=== PATIENT | male | born 1965 | race Caucasian/White ===

== ENCOUNTER 2023-08-21 00:09 | Emergency (ER) | payer BC ==
[~2023-08-21] VITALS: Ht 172.7 cm; Wt 93.6 kg
[2023-08-21 00:14] VITALS: TEMP 98
[2023-08-21] MEDS ORDERED: normal saline 1000ML IV soln IVB ONE (00:40)
[2023-08-21] MEDS ORDERED: LORazepam 2 mg/ml vial IV ONE (00:40)
[2023-08-21] MEDS ORDERED: pantoprazole 40 MG vial IV ONE (00:40)
[2023-08-21] MEDS ORDERED: ketorolac trometh. 30mg/ml inj. IV ONE (00:40)
[2023-08-21] MEDS ORDERED: morphine 4 MG/ML inj SYRINge IV ONE (00:40)
[2023-08-21] MEDS ORDERED: metoclopramide 5 mg/ml inj IV ONE (00:40)
[2023-08-21] MEDS ORDERED: pantoprazole 40MG/NS 100ML BAG 100 ML IV ONE (00:45)
[2023-08-21] MEDS ORDERED: iohexol 300mg/ml 100ml inj. ONE (01:13)
[2023-08-21 01:17] LABS: MEAN CORPUSCULAR HEMOGLOBIN 32.2 PG (27.0-31.0); MEAN PLATELET VOLUME 7.3 FL (7.4-10.4)
[2023-08-21 01:22] LABS: BASOPHILS % (AUTO) 0.5 % (0-1); EOSINOPHILS # (AUTO) 0.1 X10'3 (0-0.9); EOSINOPHILS % (AUTO) 1.2 % (0-6); HEMATOCRIT 46.2 % (42.0-52.0); HEMOGLOBIN 16.2 g/dl (14.0-17.9); LYMPHOCYTES # (AUTO) 1.2 X10'3 (1.1-4.8); LYMPHOCYTES % (AUTO) 19.7 % (21-51); MEAN CORPUSCULAR VOLUME 92.1 FL (78-98); MONOCYTES # (AUTO) 0.5 X10'3 (0-0.9); MONOCYTES % (AUTO) 7.3 % (2-12); NEUTROPHILS # (AUTO) 4.4 X10'3 (1.8-7.7); NEUTROPHILS % (AUTO) 71.3 % (42-75); PLATELET COUNT 162 X10'3 (140-440); RED BLOOD COUNT 5.01 X10'6 (4.70-6.10); RED CELL DISTRIBUTION WIDTH 13.6 % (11.5-14.5); WHITE BLOOD COUNT 6.2 X10'3 (4.5-11.0)
[2023-08-21 01:33] LABS: ALANINE AMINOTRANSFERASE 106 U/L (12-78); ALBUMIN 4.3 G/DL (3.4-5.0); ALBUMIN/GLOBULIN RATIO 1.1 (1.1-1.5); ALKALINE PHOSPHATASE 76 IU/L (46-116); ANION GAP 11 (8-16); ASPARTATE AMINO TRANSFERASE 57 U/L (10-37); BILIRUBIN,TOTAL 1.2 MG/DL (0.1-1.0); BLOOD UREA NITROGEN 15 MG/DL (7-18); BUN/CREATININE RATIO 12.3 (10.0-20.0); CALCIUM 9.9 MG/DL (8.5-10.1); CHLORIDE 102 MMOL/L (99-107); CREATININE 1.22 MG/DL (0.60-1.10); ETHANOL 76 MG/DL (<10); GLUCOSE 123 MG/DL (70-104); MAGNESIUM 2.3 MG/DL (1.5-2.4); POTASSIUM 3.1 MMOL/L (3.5-5.1); SODIUM 138 MMOL/L (135-145); TOTAL CARBON DIOXIDE 25.5 MMOL/L (24-32); TOTAL PROTEIN 8.3 G/DL (6.4-8.2); eCRCL 65 ML/MIN; eGFR 61 ML/MIN
[2023-08-21 02:28] LABS: URINE AMPHETAMINE SCREEN NEGATIVE (Neg); URINE BARBITUATE SCREEN NEGATIVE (Neg); URINE BENZODIAZEPINES SCREEN NEGATIVE (Neg); URINE CANNABINOID SCREEN NEGATIVE (Neg); URINE COCAINE SCREEN NEGATIVE (Neg); URINE METHADONE SCREEN NEGATIVE (Neg); URINE OPIATE SCREEN POSITIVE (Neg); URINE PHENCYCLIDINE SCREEN NEGATIVE (Neg)
[2023-08-21 03:19] LABS: BILIRUBIN,URINE NEGATIVE (Neg); CLARITY,URINE CLOUDY (Clear); COLOR,URINE YELLOW (Yellow); GLUCOSE, URINE NEGATIVE (Neg); KETONES,URINE TRACE mg/dl (Neg); LEUKOCYTE ESTERASE ,URINE NEGATIVE (Neg); NITRITES, URINE NEGATIVE (Neg); OCCULT BLOOD,URINE NEGATIVE (Neg); PH,URINE 7.5 (4.8-8.0); PROTEIN,URINE NEGATIVE (Neg); UA COLLECTION TYPE CLN CATCH MIDSTREAM; UROBILINOGEN,URINE 0.2 E.U/dL (0.2-1.0)
[2023-08-21] MEDS ORDERED: potassium Cl 20 mEq SR tablet PO STA (03:20)
[2023-08-21 03:32] LABS: AMORPHOUS PHOSPHATES 3+; BACTERIA,URINE NONE SEEN /HPF (Neg); MUCUS STRANDS NONE SEEN /LPF (Neg); RBC,URINE NONE SEEN /HPF (0-2); SQUAMOUS EPITHELIAL CELL,UR NONE SEEN /LPF (FEW); WBC,URINE NONE SEEN /HPF (0-4)
[2023-08-21 07:48] VITALS: BP 159/87; PULSE 88; RESP 16; O2SAT 98
== END 2023-08-21 07:58 | disposition home or self-care (01) ==
LOC: ER 00:10
DX: K29.20 Alcoholic gastritis without bleeding (principal); E87.6 Hypokalemia; E86.0 Dehydration
CPT/HCPCS: 71045; 74177; 76700; 80053; 80305; 80320; 81001; 83735; 84484; 85025; 93005; 96374; 96375; 99285; C9113; J1885; J2270; J2765; J3490; J7030; Q9967

== ENCOUNTER 2024-01-08 10:04 | Outpatient (CLI) | payer BC | END 2024-01-08 23:59 | disposition home or self-care (01) | LOC: RAD 10:04 | PROVIDERS: ATTEND Family Medicine | DX: M51.36 Other intervertebral disc degeneration, lumbar region (principal); M54.9 Dorsalgia, unspecified | CPT/HCPCS: 72110 ==

== ENCOUNTER → 2024-06-18 | Outpatient (CLI) | payer BC ==
[2024-06-18 09:26] LABS: BILIRUBIN,URINE NEGATIVE (Neg); CLARITY,URINE CLEAR (Clear); COLOR,URINE YELLOW (Yellow); GLUCOSE, URINE NEGATIVE (Neg); KETONES,URINE NEGATIVE (Neg); LEUKOCYTE ESTERASE ,URINE NEGATIVE (Neg); NITRITES, URINE NEGATIVE (Neg); OCCULT BLOOD,URINE NEGATIVE (Neg); PH,URINE 7.5 (4.8-8.0); PROTEIN,URINE NEGATIVE (Neg)
[2024-06-18 09:31] LABS: EOSINOPHILS # (AUTO) 0.2 X10'3 (0-0.9); EOSINOPHILS % (AUTO) 3.6 % (0-6); HEMATOCRIT 46.1 % (42.0-52.0); HEMOGLOBIN 15.8 g/dl (14.0-17.9); LYMPHOCYTES # (AUTO) 1.4 X10'3 (1.1-4.8); LYMPHOCYTES % (AUTO) 27.9 % (21-51); MEAN CORPUSCULAR HEMOGLOBIN 31.5 PG (27.0-31.0); MEAN CORPUSCULAR HGB CONC 34.4 g/dL (33.0-36.5); MEAN CORPUSCULAR VOLUME 91.8 FL (78-98); MEAN PLATELET VOLUME 7.6 FL (7.4-10.4); MONOCYTES # (AUTO) 0.5 X10'3 (0-0.9); MONOCYTES % (AUTO) 10.2 % (2-12); NEUTROPHILS # (AUTO) 2.8 X10'3 (1.8-7.7); NEUTROPHILS % (AUTO) 57.3 % (42-75); PLATELET COUNT 172 X10'3 (140-440); RED BLOOD COUNT 5.02 X10'6 (4.70-6.10); RED CELL DISTRIBUTION WIDTH 13.7 % (11.5-14.5); WHITE BLOOD COUNT 4.9 X10'3 (4.5-11.0)
[2024-06-18 09:34] LABS: UA COLLECTION TYPE CLN CATCH MIDSTREAM
[2024-06-18 09:49] LABS: ALANINE AMINOTRANSFERASE 34 U/L (12-78); ALBUMIN 4.1 G/DL (3.4-5.0); ALBUMIN/GLOBULIN RATIO 1.1 (1.1-1.5); ALKALINE PHOSPHATASE 76 IU/L (46-116); ANION GAP 7 (8-16); ASPARTATE AMINO TRANSFERASE 17 U/L (10-37); BILIRUBIN,TOTAL 1.2 MG/DL (0.1-1.0); BLOOD UREA NITROGEN 18 MG/DL (7-18); BUN/CREATININE RATIO 19.8 (10.0-20.0); CHLORIDE 105 MMOL/L (99-107); CHOL/HDL RATIO 2.6 (0.00-4.99); CHOLESTEROL 153 MG/DL (0-200); CREATININE 0.91 MG/DL (0.60-1.10); GLUCOSE 103 MG/DL (70-104); HDL CHOLESTEROL 58 MG/DL (35-60); LDL CHOLESTEROL 83 MG/DL (50-100); POTASSIUM 3.8 MMOL/L (3.5-5.1); SODIUM 139 MMOL/L (135-145); THYROID STIMULATING HORMONE 1.12 ulU/ml (0.34-4.50); TOTAL CARBON DIOXIDE 27.2 MMOL/L (24-32); TRIGLYCERIDES 60 MG/DL (20-135); eGFR 86 ML/MIN
[2024-06-19 11:04] LABS: PSA, ULTRASENSITIVE W/O SERIAL 0.483 ng/mL (0.000-4.000); TESTOSTERONE, SERUM 251 ng/dL (264-916); THYROXINE (T4) 5.9 ug/dL (4.5-12.0)
== END | disposition home or self-care (01) ==
LOC: RAD 08:50
PROVIDERS: ATTEND Family Medicine
DX: I10 Essential (primary) hypertension (principal); F10.20 Alcohol dependence, uncomplicated; R79.89 Other specified abnormal findings of blood chemistry
CPT/HCPCS: 36415; 80053; 80061; 81003; 83036; 84153; 84402; 84403; 84436; 84443; 85025

== ENCOUNTER 2025-01-17 11:23 | Outpatient (CLI) | payer BC ==
[2025-01-17 11:57] LABS: BASOPHILS # (AUTO) 0.1 X10'3 (0-0.2); BASOPHILS % (AUTO) 1.1 % (0-1); EOSINOPHILS # (AUTO) 0.1 X10'3 (0-0.9); EOSINOPHILS % (AUTO) 1.9 % (0-6); LYMPHOCYTES # (AUTO) 1.1 X10'3 (1.1-4.8); MEAN CORPUSCULAR HEMOGLOBIN 31.2 PG (27.0-31.0); MEAN CORPUSCULAR HGB CONC 34.5 g/dL (33.0-36.5); MEAN CORPUSCULAR VOLUME 90.6 FL (78-98); MEAN PLATELET VOLUME 7.4 FL (7.4-10.4); MONOCYTES # (AUTO) 0.4 X10'3 (0-0.9); MONOCYTES % (AUTO) 7.6 % (2-12); NEUTROPHILS % (AUTO) 69.4 % (42-75); PLATELET COUNT 213 X10'3 (140-440); RED BLOOD COUNT 5.85 X10'6 (4.70-6.10); RED CELL DISTRIBUTION WIDTH 14.3 % (11.5-14.5); WHITE BLOOD COUNT 5.7 X10'3 (4.5-11.0)
[2025-01-17 12:21] LABS: ALANINE AMINOTRANSFERASE 28 U/L (12-78); ALBUMIN 4.1 G/DL (3.4-5.0); ALBUMIN/GLOBULIN RATIO 1.1 (1.1-1.5); ALKALINE PHOSPHATASE 75 IU/L (46-116); ANION GAP 10 (8-16); ASPARTATE AMINO TRANSFERASE 22 U/L (10-37); BILIRUBIN,TOTAL 1.3 MG/DL (0.1-1.0); BLOOD UREA NITROGEN 16 MG/DL (7-18); CHLORIDE 106 MMOL/L (99-107); CHOL/HDL RATIO 2.7 (0.00-4.99); CHOLESTEROL 158 MG/DL (0-200); CREATININE 0.89 MG/DL (0.60-1.10); HDL CHOLESTEROL 58 MG/DL (35-60); LDL CHOLESTEROL 90 MG/DL (50-100); POTASSIUM 4.2 MMOL/L (3.5-5.1); SODIUM 141 MMOL/L (135-145); THYROID STIMULATING HORMONE 0.72 ulU/ml (0.34-4.50); TOTAL CARBON DIOXIDE 25.1 MMOL/L (24-32); TRIGLYCERIDES 54 MG/DL (20-135); eGFR 88 ML/MIN
[2025-01-17 12:27] LABS: GLUCOSE 86 MG/DL (70-104)
[2025-01-17 12:48] LABS: HEMOGLOBIN A1C 4.8 % (4.5-6.2)
[2025-01-18 13:57] LABS: HEMOGLOBIN 18.3 g/dl (14.0-17.9)
[2025-01-20 13:16] LABS: TESTOSTERONE, SERUM 510 ng/dL (264-916); THYROXINE (T4) 6.7 ug/dL (4.5-12.0)
== END 2025-01-17 23:59 | disposition home or self-care (01) ==
LOC: RAD 11:23
PROVIDERS: ATTEND Family Medicine
DX: I10 Essential (primary) hypertension (principal); E29.1 Testicular hypofunction
CPT/HCPCS: 36415; 80053; 80061; 83036; 84402; 84403; 84436; 84443; 85025

== ENCOUNTER 2025-03-24 09:54 | Outpatient (CLI) | payer BC ==
[2025-03-25 11:14] LABS: TESTOSTERONE, SERUM 92 ng/dL (264-916)
== END 2025-03-24 23:59 | disposition home or self-care (01) ==
LOC: RAD 09:54
PROVIDERS: ATTEND Family Medicine
DX: E29.1 Testicular hypofunction (principal)
CPT/HCPCS: 36415; 83036; 84402; 84403

== ENCOUNTER 2025-10-21 12:43 | Inpatient (IN) | payer BC ==
[~2025-10-21] VITALS: Ht 172.7 cm; Wt 107.5 kg
--- NOTE | 2025-10-21 12:54 | ELECTROCARDIOGRAPH REPORT ---
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 ROBERT Mosquera Measurements Intervals [place] Rate: 95 P: 56 NC: 47 QRS: 93 QRSD: 117 T: -56 QT: 390 QTc: 491 Interpretive Statements Sinus rhythm Paired ventricular premature complexes Aberrant conduction of SV complex(es) Short NC interval Nonspecific intraventricular conduction delay Anterior infarct, old Borderline repolarization abnormality Baseline wander in lead(s) V3 Electronically Signed On 10-22-2025 17:08:[address] ROBERT Mosquera Please click the below link to view image of tracing.
--- NOTE | 2025-10-21 13:07 | Physician Documentation ---
History of Present Illness General Chief Complaint: Cough Stated Complaint: SOB COLD SYMPTOMS Time Seen by MD: 13:06 Mode of Arrival: POV History of Present Illness Initial Comments The patient is a 59-year-old male who states he has a history of hypertension but no significant cardiac history states that he has been progressively short of breath over last several weeks. The patient states he has dyspnea on exertion walking across the room. The patient denies any chest pain. Patient states he is not a current smoker. The patient states he does have a strong family history of cardiac disease. Medication Reconciliation Allergies: Coded Allergies: No Known Allergies (Unverified , 08/21/23) Scheduled Carvedilol (Carvedilol), 3.125 MG PO BID Cholecalciferol (Vitamin D3) (Vitamin D3), 2 CAP PO DAILY, (Reported) Furosemide (Furosemide), 40 MG PO BID Sacubitril/Valsartan (Entresto 24 mg-26 mg Tablet), 1 TABLET PO BID Spironolactone (Aldactone), 25 MG PO BID Scheduled PRN Nitroglycerin SL* (Nitrostat SL*), 0.4 MG SL Q5MIN PRN for X3 CHEST PAIN-NOTIFY MD Discontinued Medications Amlodipine Besylate (Norvasc), 1 TAB PO DAILY, (Reported) Amlodipine Besylate/Benazepril 5/40 MG* (Amlodipine-Benazepril 5/40 MG*), 1 CAP PO DAILY, (Reported) Discontinued Reason: wrong med Past Medical History Past Medical History: Hypertension Review of Systems All Other Systems at this time: Reviewed and Negative Physical Exam Physical Exam Vital Signs: Temperature: 97.7, Source: Oral, Heart Rate: 60, Respiratory Rate: 16, BP: 145/96, Pulse Oximetry: 95, Weight: 110.300 Oxygen Flow Rate: 0 Physical Exam VITALS: Reviewed and as above. GENERAL: Alert, no apparent distress. HEENT: Normocephalic, atraumatic, PERRL, EOMI, dry mucosa, no erythema RESPIRATORY: Crackles bilateral bases, no respiratory distress. CHEST: No accessory muscle use, no retractions CV: Irregular rate, rhythm, no edema, no murmur, No: JVD GI: Soft, non-tender, bowels sounds present, no rebound, guarding, or rigidity BACK: No CVA tenderness, or swelling MUSCULOSKELETAL: No deformities, no edema SKIN: Warm and dry, no rash NEURO: Oriented x4, No motor or sensory deficit PSYCH: Normal mood and affect, no agitation Progress Results/Orders Results/Orders Orders - OHJOSHUA GUAJARDO MD Chest,Single View (10/21/25 12:49) Monitor (10/21/25 12:49) Saline Lock (10/21/25 12:49) Oxygen (10/21/25 12:49) Electrocardiogram (10/21/25 12:49) Page Hospitalist (10/21/25 14:25) Completed Orders - JOSHUA ROBB MD Chest,Single View (10/21/25 12:49) Cbc/Diff (10/21/25 12:49) BMP (10/21/25 12:49) PBNP (10/21/25 12:49) Electrocardiogram (10/21/25 12:49) Hs Troponin I W Calculations (10/21/25 12:49) Procalcitonin (10/21/25 13:12) Nitroglycerin 0.4mg/Hr Patch (Nitro-Dur (10/21/25 13:50) Vital Signs 10/21/25 10/21/25 10/21/25 12:45 13:01 15:29 Temp 97.7 Pulse 60 71 Resp 16 16 18 B/P (MAP) 145/96 120/87 (98) Pulse Ox 95 95 O2 Flow Rate 0 0 Laboratory Tests Test 10/21/25 13:00 White Blood Count 6.8 Red Blood Count 5.63 Hemoglobin 16.8 Hematocrit 49.1 Mean Corpuscular Volume 87.2 Mean Corpuscular Hemoglobin 29.8 Mean Corpuscular Hemoglobin Concent 34.2 Red Cell Distribution Width 13.3 Platelet Count 234 Mean Platelet Volume 8.0 Neutrophils (%) (Auto) 64.6 Lymphocytes (%) (Auto) 22.4 Monocytes (%) (Auto) 9.3 Eosinophils (%) (Auto) 2.9 Basophils (%) (Auto) 0.8 Neutrophils # (Auto) 4.4 Lymphocytes # (Auto) 1.5 Monocytes # (Auto) 0.6 Eosinophils # (Auto) 0.2 Basophils # (Auto) 0.1 CBC Comment Sodium Level 138 Potassium Level 3.9 Chloride Level 104 Carbon Dioxide Level 24.8 Anion Gap 9 Blood Urea Nitrogen 18 Creatinine 1.21 H Estimated GFR/1.73 m2 62 BUN/Creatinine Ratio 14.9 Glucose Level 105 H Calcium Level 9.3 Troponin I High Sensitivity 54 Pro-B-Type Natriuretic Peptide 304 H Albumin 4.1 Procalcitonin 0.05 Chemistry Comments Medical Decision Making Additional information obtaine: old records Findings The patient's EKG demonstrates a sinus rhythm with an indeterminate axis with multiple PVCs and paired PVCs and nonspecific ST abnormalities with a rate of 95 the EKG was interpreted as an abnormal EKG there was no evidence of ST- elevation. The patient presented with new onset shortness of breath and was found to have pulmonary edema and an abnormal EKG. The patient has no history of congestive heart failure. The patient will be admitted to the hospitalist. I independently interpreted the chest x-ray as showing cardiomegaly, pulmonary edema and normal appearing bony structures and a normal mediastinum. 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 Patient will be admitted to the hospitalist Differential Diagnosis chf, copd, pneumonia Departure Admitted to Inpatient Unit: yes, to hospitalist Impression: Primary Impression: Shortness of breath Additional Impression: Pulmonary edema Qualified Codes: J81.0 - Acute pulmonary edema Referrals: NO PRIMARY CARE PROVIDER (PCP) Prescriptions Carvedilol (Carvedilol) 3.125 Mg Tablet 3.125 MG PO BID for 30 Days, #60 TAB Prov: MAJO WILLIS MD 10/23/25 Nitroglycerin SL* (Nitrostat SL*) 0.4 Mg Tablet 0.4 MG SL Q5MIN PRN for X3 CHEST PAIN-NOTIFY MD for 30 Days, #30 TAB Prov: MAJO WILLIS MD 10/23/25 Furosemide (Furosemide) 40 Mg Tablet 40 MG PO BID for 30 Days, #60 TAB Prov: MAJO WILLIS MD 10/23/25 Spironolactone (Aldactone) 25 Mg Tablet 25 MG PO BID for 30 Days, #30 TAB Prov: MAJO WILLIS MD 10/23/25 Sacubitril/Valsartan (Entresto 24 mg-26 mg Tablet) 24 Mg-26 Mg Tablet 1 TABLET PO BID for 30 Days, #60 TAB Prov: AMJO WILLIS MD 10/23/25 Signature Scribe Signature: no scribe Attestation: The note accurately reflects work and decisions made by me.Joshua Robb MD 10/24/25 11:19 JOSHUA ROBB MD Oct 21, 2025 13:07
[2025-10-21 13:12] LABS: MEAN PLATELET VOLUME 8.0 FL (7.4-10.4); RED CELL DISTRIBUTION WIDTH 13.3 % (11.5-14.5)
--- NOTE | 2025-10-21 13:19 | RADIOLOGY REPORT ---
EXAM: DI CHEST,SINGLE VIEW HISTORY: CP COMPARISON: DI CHEST,SINGLE VIEW on DOS: 08/21/23 TECHNIQUE: Portable upright AP view of the chest was performed. FINDINGS: There is diffuse interstitial prominence, greatest centrally and in the lung bases. No pneumothorax or consolidative infiltrates. There is blunting of the right costophrenic angle. The heart is borderline enlarged. IMPRESSION: Interstitial prominence centrally and in the lung bases suggestive of CHF exacerbation. There is also likely a small right pleural effusion.
[2025-10-21 13:35] LABS: CREATININE 1.21 MG/DL (0.60-1.10); PRO BRAIN NATRIURETIC PEPTIDE 304 PG/ML (0-125); TOTAL CARBON DIOXIDE 24.8 MMOL/L (24-32); eCRCL 64 ML/MIN; eGFR 62 ML/MIN
[2025-10-21] MEDS ORDERED: potassium Cl 20 mEq SR tablet PO PRN ×2 (15:50)
[2025-10-21] MEDS ORDERED: magnesium Cl slow-release 64mg tablet PO PRN (15:50)
[2025-10-21] MEDS ORDERED: potassium Cl 40MEQ/1/2NS 520ml 520 ML IV PRN (15:50)
[2025-10-21] MEDS ORDERED: magnesium sulf-water 2g/50mL 50 ML IV PRN (15:50)
[2025-10-21] MEDS ORDERED: ondansetron/PF 4mg/2ml inj IV PRN (15:50)
[2025-10-21] MEDS ORDERED: magnesium sulf-water 4G/100mL 100 ML IV PRN (15:50)
--- NOTE | 2025-10-21 16:00 | HISTORY AND PHYSICAL ---
History & Physical Providers to CC ~ History of Present Illness Reason for Admit\Complaint: Shortness of breath History of Present Illness 59 year old male with history of HTN presented to the ER for evaluation of shortness of breath over the last several weeks. Patient reports being short of breath walking across a room. Denies having any orthopnea PND or ankle edema. Patient states he was having a lot of reflux symptoms and changed his diet, stopped drinking alcohol but still his symptoms did not improve. Denies having any recent fever chills cough or expectoration, denies having any abdominal pain dysuria frequency urgency hematuria melena or bright red blood per rectum. Patient denies having any focal neurological symptoms. He has been admitted for further evaluation of his dyspnea. Allergies: Coded Allergies: No Known Allergies (Unverified , 08/21/23) Past Medical History Past Medical History Hypertension Past Surgical History Surgical History Comment None Family History Family History: Family history was reviewed; no changes noted. Past Social History Social History Comment Does not smoke, does not drink or do any drugs Health Maintenance Health Maintenance Current on his immunizations ROS ROS All other systems are reviewed and are negative except as mentioned in HPI Exam Vitals: Vital Signs Date Time Temp Pulse Resp B/P (MAP) Pulse Ox O2 Delivery O2 Flow Rate FiO2 10/21/25 15:29 71 18 120/87 (98) 95 0 10/21/25 12:45 97.7 General: Awake cooperative in no acute distress HEENT: Normocephalic, atraumatic, extraocular movements are intact. Neck: Supple, no JVD, trachea midline, no lymphadenopathy. Chest: Clear to auscultation, no wheezes crackles or rhonchi. Cardiovascular: Regular rate rhythm, no murmur gallop or rub. Abdomen: Soft nontender, no organomegaly. Extremities: No cyanosis clubbing or edema. Central Nervous System: Nonfocal. Moves all four extremities Musculoskeletal: No joint swelling or deformities noted. Skin: No rash or ulcers noted. Diagnostic Data Last Recorded Lab Results: 10/21/25 1300 10/21/25 1300 Additional Plan 59 years old male with a history of hypertension, presented to the ER for evaluation of shortness of breaths #shortness of breaths: We will check serial troponin, echocardiogram, treat with Lasix and monitor #history of hypertension: Start on Coreg. #code status: Full code Date of Service: Oct 21, 2025 Billing Provider: MAJO WILLIS MD Common Visit Codes: [id number] INP/OBS CARE (MOD) MAJO WILLIS MD Oct 21, 2025 16:00
[2025-10-21] MEDS: PERFLUTREN PROTEIN-A MICROSPHR (Optison) 0.22 MG/ML 3ML VIAL IV ONE (16:02)
[2025-10-21] MEDS ORDERED: furosemide 10 MG/1 ML 10ml inj IV SCH (16:25)
[2025-10-21] MEDS: furosemide 10 MG/1 ML 10ml inj IV SCH (18:39)
[2025-10-21] MEDS: K and/or MAG REPLACEMENT MC SCH (19:56)
[2025-10-21] MEDS ORDERED: AMLO-140 PO (20:02)
[2025-10-21] MEDS ORDERED: CHOL100046 PO (20:02)
[2025-10-21 22:22] VITALS: BP 126/84; PULSE 78; RESP 18; TEMP 97.8; O2SAT 95
[2025-10-21 22:30] VITALS: RESP 18; O2SAT 95
[2025-10-21 23:15] LABS: INFLUENZA TYPE A ANTIGEN RAPID NEGATIVE (Negative); INFLUENZA TYPE B ANTIGEN RAPID NEGATIVE (Negative)
[2025-10-22] VITALS (13 sets, daily range): BP systolic 109–142; BP diastolic 71–192; PULSE 60–94; RESP 14–18; TEMP 97.3–98.3; O2SAT 88–98
[2025-10-22 05:21] LABS: MEAN PLATELET VOLUME 7.7 FL (7.4-10.4); RED CELL DISTRIBUTION WIDTH 13.5 % (11.5-14.5)
[2025-10-22 05:23] LABS: CREATININE 1.14 MG/DL (0.60-1.10); TOTAL CARBON DIOXIDE 26.8 MMOL/L (24-32); eCRCL 68 ML/MIN; eGFR 66 ML/MIN
[2025-10-22] MEDS ORDERED: AMLO5TAB5 PO (10:45)
--- NOTE | 2025-10-22 11:28 | PROGRESS NOTE ---
Daily Progress Note Providers to CC ~ Antibiotic Timeout Antibiotic Ordered?: No Subjective No new complaints, patient is getting an Echo Objective Vital Signs Date Time Temp Pulse Resp B/P (MAP) Pulse Ox O2 Delivery O2 Flow Rate FiO2 10/22/25 06:48 97.8 70 17 113/75 (88) 97 Room Air 10/21/25 20:04 0 Result Diagram: 10/22/2545310/22/25453 Awake alert oriented HEENT normocephalic , atraumatic EOMI Neck supple, no JVD Chest CTA Heart RRR Abdomen soft nontender no organomegaly Extremities No C/C/E Neuro exam nonfocal Other Results Medications reviewed Problem\Assessment\Plan 59 years old male with a history of hypertension, presented to the ER for evaluation of shortness of breaths #shortness of breath: Check serial troponin, await echocardiogram, Continue Lasix , request cardiology consult . #history of hypertension: Started on Coreg. #Code status: Full code Date of Service: Oct 22, 2025 Billing Provider: MAJO WILLIS MD Common Visit Codes: [id number] INP/OBS CARE(HIGH) MAJO WILLIS MD Oct 22, 2025 11:28
[2025-10-22] MEDS ORDERED: aminophylline 250mg/10ml inj. IV PRN (11:35)
[2025-10-22] MEDS ORDERED: regadenoson 0.4mg/5ml syringe IV PRN (11:35)
[2025-10-22] MEDS ORDERED: metoprolol tartrate 1mg/ml inj IV PRN (11:35)
[2025-10-22] MEDS: cholecalciferol (vitamin D3) 1,000 unit (25mcg) tablet PO SCH (14:10)
[2025-10-22] MEDS ORDERED: LIDOcaine 1% 30ml preserv. free vial ONE (14:52)
[2025-10-22] MEDS ORDERED: midazolam 1 mg/ML 2ml injection ONE (14:52)
[2025-10-22] MEDS ORDERED: fentaNYL/PF 50MCG/1 ML 2ML syringe ONE (14:53)
[2025-10-22] MEDS ORDERED: iohexol 350 MG/ML 50ML vial IV ONE (14:53)
[2025-10-22] MEDS: normal saline 1000ml 1,000 ML IV SCH ×2 (14:57→17:38)
--- NOTE | 2025-10-22 16:59 | CONSULTATION REPORT ---
Cardiac Consultation Report Providers to CC ~ Subjective Subjective CARDIOLOGY CONSULTATION: CONGESTIVE HEART FAILURE HOSPITALIZATION EJECTION FRACTION APPROXIMATELY 30% ON ECHOCARDIOGRAPHY WITH INFEROBASAL AKINESIS. BECAUSE PATIENT STARTED TO HAVE INCREASING SHORTNESS OF BREATH WHILE CAMPING AND HE HAS HAD SEVERAL MONTHS OF A CHRONIC HACKING NONPRODUCTIVE COUGH. 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 HE TAKES AMLODIPINE FOR HYPERTENSION GENERAL CARES [facility]. 0 HISTORY OF RECREATIONAL DRUG USE NONE FOR GREATER THAN 10 YEARS. HE QUIT DRINKING ALCOHOL TWO MONTHS AGO. HAD REPEATED EPISODES OF GASTROESOPHAGEAL REFLUX DISORDER AND HE HAS BEGAN TO THINK IT MAY BE ANGINA AND HE CAME TO THE EMERGENCY ROOM DUE TO HIS SHORTNESS OF BREATH. HE HAS RECEIVED ONE LASIX 40 MG HIS HOSPITALIZATION. ALLERGIES NONE KNOWN Objective Vitals Vital Signs Date Time Temp Pulse Resp B/P (MAP) Pulse Ox O2 Delivery O2 Flow Rate FiO2 10/22/25 11:00 97.3 68 18 132/91 (105) 96 Room Air 10/21/25 20:04 0 Lab Results: 10/22/25 0454 10/22/25 0454 Objective NECK VEINS APPRECIATED AT 45 NO CAROTID BRUIT LUNG ONEIL NO RALES NO WHEEZE NO PLEURAL RUB. HEART PMI NOT PALPABLE NO MURMUR NO S3 GALLOP NO RUB ABDOMEN ACTIVE BOWEL SOUNDS NO BRUITS. PERIPHERAL TRACE EDEMA. FOOT PULSES PLUS TWO. Other Results ECHOCARDIOGRAM EJECTION FRACTION LEFT VENTRICLE 30% OR LESS. RIGHT VENTRICLE NEARLY AKINETIC. VERY MILD MITRAL REGURGITATION NO TRICUSPID REGURGITATION CAN NOT ESTIMATE PULMONARY ARTERY PRESSURE. Problem\Assessment\Plan Additional Plan IMPRESSION CONGESTIVE HEART FAILURE SEVERE CARDIOMYOPATHY ETIOLOGY INDETERMINATE PROBABLY VIRAL HAS NOT HAD ALCOHOL IN TWO MONTHS SO ONE WOULD THINK IT WOULD HAVE IMPROVED IF IT WAS ALCOHOL INDUCED. RECOMMENDATION DIAGNOSTIC HEART CATHETERIZATION RIGHT LEFT IN COR. IS PRESENT EXPLAINED PROCEDURE DIAGNOSIS RATIONALE. RISKS INCLUDE AND NOT RESTRICTED TO STROKE MYOCARDIAL INFARCTION RENAL FAILURE NEUROLOGIC VASCULAR COMPLICATIONS BLEEDING COMPLICATIONS ALLERGIC REACTION. PLAN TO PROCEED TODAY. ACCOUNTING TEACHER SCHEDULING CONTACTED. BOSSMAN ALLISON MD Oct 22, 2025 16:59
--- NOTE | 2025-10-22 17:04 | CARDIAC CATH REPORT ---
Cardiology Post Cath Findings Findings Findings: CARDIOLOGY POST CATHETERIZATION NOTE: UNCOMPLICATED RIGHT LEFT HEART CATHETERIZATION CORONARY ARTERIOGRAPHY LEFT VENTRICULOGRAPHY. IS HERE PLACEMENT NO COMPLICATION. FINDINGS: 1. SEVERE DIFFUSE HYPOKINESIS ON LEFT VENTRICULOGRAPHY EJECTION FRACTION LESS THAN 30%. 2. NORMAL CORONARY ARTERIES RIGHT AND LEFT CORONARY ARTERIES ARE SMOOTH. 3. CARDIAC INDEX 2.9. 4. RIGHT ATRIAL PRESSURE 14 PULMONARY ARTERY PRESSURE 75/45. HER CAPILLARY WEDGE PRESSURE MEAN OF 28. MAY NOT BE A TRUE WEDGE DO THE ELEVATED PULMONARY PRESSURE. IMPRESSION: PULMONARY HYPERTENSION WITH SUPERIMPOSED CARDIOMYOPATHY. PATIENT DISABLED UNDER FEDERAL GUIDELINES. HISTORY RETURNED TO WORK. RECOMMENDATION: 1. DISCONTINUE AMLODIPINE 2. START ENTRESTO LOWEST DOSE P.O. B.I.D. START SPIRONOLACTONE 25 MG P.O. B.I.D. FUROSEMIDE 40 MG P.O. B.I.D. POTASSIUM 10 MG P.O. B.I.D. FOR A 3.125 MG P.O. B.I.D. 3. IF PATIENT CAN NOT AFFORD ENTRESTO THEN SUBSTITUTE LOSARTAN AND INCREASE DOSE BLOOD PRESSURE TOLERATES. 4. DAILY CHEM 12. 5. OUT OF BED 8 HOURS POST PROCEDURE. TOLERATED. HEP-LOCK AFTER 8 HOURS. CONTINUED TELEMETRY MONITORING. BOSSMAN ALLISON MD Oct 22, 2025 17:03
[2025-10-22] MEDS ORDERED: ondansetron/PF 4mg/2ml inj IV PRN (17:10)
[2025-10-22] MEDS ORDERED: OXAZEpam 15mg capsule PO PRN (17:10)
[2025-10-22] MEDS ORDERED: HYDROcodone/acetaminophen 5mg/325mg tablet PO PRN (17:10)
[2025-10-22] MEDS ORDERED: HYDROcodone/acetaminophen 10/325mg tab PO PRN (17:10)
[2025-10-22 17:47] LABS: CREATININE 1.16 MG/DL (0.60-1.10); eCRCL 67 ML/MIN; eGFR 65 ML/MIN
--- NOTE | 2025-10-22 18:14 | CARDIOLOGY REPORT ---
APPROVED REPORT EXAM: Comprehensive 2D, Doppler, and color-flow Echocardiogram. Patient Location: 350B Blood Pressure: 113/75 mmHg Heart Rate: 78 bpm Indications Congestive Heart Failure Shortness of Breath x 3 weeks Hypertension NO SAUSAGE MIXER NO Previous ECHO 2D Dimensions LA Diam 4.8 cm IVSd 1.1 (0.7-1.1cm) LVDd 5.9 cm PWd 1.1 (0.7-1.1cm) IVSs 1.2 (0.8-1.2cm) LVDs 5.2 (2.5-4.0cm) PWs 1.1 (0.8-1.2cm) LVOT Diameter 2.00 (1.8-2.4cm) LVEF(%) 23.6 (>50%) Ao Asc Diam. 3.42 cm IVC 23.14 mm FS (%) 11.0 % SV 40.7 ml CO 3.3 L/min M-Mode Dimensions Left Atrium(MM) 4.83 (2.5-4.0cm) Aortic Root 2.52 (2.2-3.7cm) Aortic Cusp Exc 1.57 (1.5-2.0cm) MV EPSS 1.6 (<0.5cm) Aortic Valve AoV Peak Lio. 122.1 cm/s AoV VTI 18.9 cm AO Peak GR. 6.0 mmHg AO Mean GR. 4 mmHg LVOT VTI 19.70 cm LVOT Peak Lio. 95.1 cm/s ARIEL(VTI)/BSA 3.25 cm2/m2 ARIEL (VTI) 3.25 cm2 AV DI 1.04 % Mitral Valve MV E Velocity 160.7 cm/s MV Peak Gr. 11 mmHg MV DECEL TIME 192 ms MV A Velocity 44.7 cm/s MV PHT 68 ms E/A Ratio 3.6 MVA (PHT) 3.24 cm2 MV VMax 168.9 cm/s Pulmonary Valve PAEDP 11.58 mmHg Tricuspid Valve TR P. Velocity 285 cm/s RAP ESTIMATE 10 mmHg TR Peak Gr. 33 mmHg RVSP 43 mmHg LEFT VENTRICLE Normal LV size and wall thickness. Overall systolic function is moderate to severely decreased. There is [id number] LV systolic dysfunction present. Overall estimated LVEF is about 35-40% (visually). RIGHT VENTRICLE The right ventricle is normal size with mildly decreased function. ATRIA Left atrium is moderately dilated. AORTIC VALVE Trileaflet AV appears mildly sclerotic without stenosis. Trace insufficiency. MITRAL VALVE Mild mitral annular calcification without stenosis. Moderate regurgitation. TRICUSPID VALVE The tricuspid valve is normal in structure with mild regurgitation. PULMONIC VALVE Pulmonic valve is grossly normal in structure with physiologic insufficiency. GREAT VESSELS The aortic root is normal in size. The ascending aorta is normal in size. IVC is dilated and collapses less than 50% with inspiration. PERICARDIUM Normal pericardium. No effusion. Left Pleural effusion present. Other Information Study Quality: Adequate Conclusion There is [id number] LV systolic dysfunction present. Overall estimated LVEF is about 35-40% (visually). Normal LV size and wall thickness. Overall systolic function is moderate to severely decreased. The right ventricle is normal size with mildly decreased function. Trileaflet AV appears mildly sclerotic without stenosis. Trace insufficiency. Mild mitral annular calcification without stenosis. Moderate regurgitation. The tricuspid valve is normal in structure with mild regurgitation. Pulmonic valve is grossly normal in structure with physiologic insufficiency. Normal pericardium. No effusion. Left Pleural effusion present.
[2025-10-22] MEDS: sacubitril/valsartan 24mg-26mg tablet PO SCH (19:57)
--- NOTE | 2025-10-22 20:56 | CARDIOLOGY REPORT ---
DATE OF SERVICE: 10/22/2025 DICTATING PHYSICIAN: Miguel Coley MD PROCEDURES: * Right heart catheterization. * Left heart catheterization. * Left ventriculography. * Oximetry, cardiac outputs. * Left and right coronary arteriography. * Right iliofemoral arteriogram, Angio-Seal application. * Conscious sedation and administration was 45 minutes. BRIEF HISTORY AND INDICATION: A 59-year-old male has been ill since June,, has a chronic nonproductive, hacking cough and had significant shortness of breath, so he finally came to the Emergency Room for hospitalization. He was found to have severe cardiomyopathy with ejection fraction of approximately 30% on echocardiography. He has been maintained on amlodipine for high blood pressure at [facility]. He is able to sleep at night and uses a CPAP machine that he does not tolerate all that well. Echocardiography on review showed some inferobasal small akinetic segment. He had a choice between nuclear stress testing, which would undoubtedly be abnormal due to variable blood flow or diagnostic coronary angiography to exclude coronary artery disease, measured cardiac outputs, and pulmonary artery pressures. Risks, benefits, and alternatives were discussed with him and his , and he chose to have diagnostic heart catheterization. TECHNIQUE: Following usual sterile preparation and draping, the right groin was infiltrated with 10 mL of 1% lidocaine local anesthetic. He received 2 mg Versed, , and 25 mg of Benadryl for conscious sedation and to prevent any allergic reaction. He was maintained on oxygen 2 liters per minute. Normal saline 50 mL per hour. Following usual sterile preparation and draping, the right groin was infiltrated with 1% lidocaine and local anesthetic. Using single wall puncture technique, a J-tip guidewire lead, a 6-Marshallese sheath was introduced to the right femoral artery. Selective left and right coronary arteriography and left ventriculography was performed with a 6-Marshallese femoral, left 4, right 4 Dayron-shaped catheters, and straight pigtail catheter. Subsequently, using a single wall puncture technique, an 8-Marshallese sheath was placed in the right femoral vein over a wire. Right heart catheterization, AO sats, PA sats obtained with a 7.5-Marshallese thermodilution Marquand-Noa catheter. At termination, sheaths were removed. Angio-Seal applied in the right femoral artery. Hemostasis was obtained. There were no complications. 100 mL of Omnipaque 350 contrast was administered. Fluoroscopy time was 5.2 minutes. Radiation exposure was 11,257 cGy per cm2. FINDINGS: A 5 feet 8 inches, 240 pounds, 59-year-old male, AO sat 96%, PA sat 69%, cardiac output 5.16, cardiac index 2.34. AO 116/76, LV 116/15-20. During expiration, RA 19/13, mean RA 14; RV 73/14-20; PA 70/36, mean 51. During inspiration, PA 60/30. PACW 30/48, mean of 35, may not be accurate as there is no mitral regurgitation on echocardiography or left ventriculography. Certainly, on echocardiography, it is very mild. LEFT VENTRICULOGRAM: Multisegmental severe hypokinesis. Post-PVC, ejection fraction 35%. CORONARY ARTERIES: Intimal irregularities of left main coronary, left anterior descending, left circumflex codominant, intermediate branch of the right coronary artery, which also provides posterior descending artery. RESULTS: * Marked cardiac index reduced to 2.34 for body size. * Pulmonary hypertension. * Markedly elevated pulmonary wedge pressure, which is not accurate due to pulmonary hypertension. * Severe cardiomyopathy, ejection fraction 35% post premature ventricular complex. * Intimal irregularities that are less than 10% narrowings, left main coronary, left anterior descending, left circumflex, which is codominant, intermediate branch, and right coronary artery. COMMENT: The patient appears to have pulmonary hypertension and superimposed severe cardiomyopathy. On echocardiography, the right ventricle was nearly akinetic. ETIOLOGY: He has remote substance abuse, which may be the etiology of his pulmonary hypertension. The reduced ejection fraction, he quit drinking alcohol 2 months ago when he started to notice increased shortness of breath and ejection fraction apparently has not improved. This may also be viral superimposed. RECOMMENDATIONS: Medical therapy: Spironolactone 25 mg b.i.d., furosemide 20 mg b.i.d., potassium 10 b.i.d., start Entresto low dose b.i.d., Coreg 3.125 mg p.o. b.i.d. Depending on improvement and further changes, he may need to be referred to [facility] for evaluation of pulmonary hypertension. Miguel Coley MD TID: [id number] RECEIPT: [id number] TR/JERMAINE
[2025-10-23 02:00] VITALS: BP 109/81; PULSE 69; RESP 21; TEMP 98.5; O2SAT 95
[2025-10-23 05:00] LABS: MEAN PLATELET VOLUME 7.9 FL (7.4-10.4); RED CELL DISTRIBUTION WIDTH 13.2 % (11.5-14.5)
[2025-10-23 05:31] LABS: CREATININE 1.27 MG/DL (0.60-1.10); TOTAL CARBON DIOXIDE 27.6 MMOL/L (24-32); eCRCL 61 ML/MIN; eGFR 58 ML/MIN
[2025-10-23 06:00] VITALS: BP 104/70; PULSE 60; RESP 20; TEMP 97.6; O2SAT 96
[2025-10-23 07:07] LABS: ISTAT HGB ART 14.3 g/dl (14.0-17.9); ISTAT HGB MIX 14.3 g/dl (14.0-17.9); ISTAT Hct ART 42 %PCV (42-52); ISTAT Hct MIX 42 %PCV (42-52); ISTAT O2 SATURATION ARTERIAL 96 % (95-98); ISTAT O2 SATURATION MIX VENOUS 69 % (60-80); ISTAT SOURCE BLNK
[2025-10-23 10:00] VITALS: BP 114/77; PULSE 63; RESP 18; TEMP 97.6; O2SAT 98
[2025-10-23 10:29] VITALS: RESP 20; O2SAT 96
--- NOTE | 2025-10-23 15:02 | DISCHARGE SUMMARY ---
Discharge Summary Providers to CC ~ Discharge Summary Admission Diagnosis: Shortness of breath Hospital Course DATE OF ADMISSION: 10/21/2025 DATE OF DISCHARGE:10/23/2025 Discharge Diagnosis\Comment: New onset CHF Hypertension Operations\Procedures: Coronary angiogram Consultants: Dr. Coley Complications: None Condition on DC: Stable New Medications: Carvedilol (Carvedilol) 3.125 Mg Tablet 3.125 MG PO BID for 30 Days, #60 TAB Furosemide (Furosemide) 40 Mg Tablet 40 MG PO BID for 30 Days, #60 TAB Nitroglycerin SL* (Nitrostat SL*) 0.4 Mg Tablet 0.4 MG SL Q5MIN PRN for X3 CHEST PAIN-NOTIFY MD for 30 Days, #30 TAB Sacubitril/Valsartan (Entresto 24 mg-26 mg Tablet) 24 Mg-26 Mg Tablet 1 TABLET PO BID for 30 Days, #60 TAB Spironolactone (Aldactone) 25 Mg Tablet 25 MG PO BID for 30 Days, #30 TAB Continued Medications: Cholecalciferol (Vitamin D3) (Vitamin D3) 25 Mcg (1000 Unit) Capsule 2 CAP PO DAILY for 30 Days, #30 CAP 0 Refills Discontinued Medications: Amlodipine Besylate (Norvasc) 5 Mg Tablet 1 TAB PO DAILY for 30 Days, #30 TAB 0 Refills Discharge Summary: Reason for admission: 59 years old male presented to the ER for evaluation of shortness of breaths Please refer to admission H&P for more details Hospital course: Patient was admitted on the monitored floor under hospital course as follows. # new onset CHF: Patient was treated with IV Lasix, started on Entresto spironolactone and Coreg. Cardiology consulted and patient underwent a coronary angiogram which was negative for any CAD. Echocardiogram showed an EF of 35- 40%. #hypertension: Amlodipine has been discontinued and patient is started on Coreg # sleep apnea: Patient has been using a CPAP machine at home. Discharge exam: Examined the patient on the day of discharge. He reports feeling better HEENT normocephalic atraumatic extraocular movements are intact Neck supple, no JVD Chest: Clear to auscultation, no wheezes crackles rhonchi Heart: Regular rate rhythm, no murmur or gallop rub Abdomen is soft nontender no organomegaly Extremities no cyanosis clubbing or edema Neuro exam nonfocal Disposition: Home *Problems/Diagnosis: (1) Shortness of breath (2) Shortness of breaths Total Time Spent on D/C: > 30 Minutes Date of Service: Oct 23, 2025 Billing Provider: MAJO WILLIS MD Common Visit Codes: 20394-CHQ/OBS DISCH DAY >30min MAJO WILLIS MD Oct 23, 2025 15:02
[2025-10-23] MEDS ORDERED: SPIR25TA PO (15:05)
[2025-10-23] MEDS ORDERED: SACU1TAB PO (15:05)
[2025-10-23] MEDS ORDERED: FURO40TA4 PO (15:05)
[2025-10-23] MEDS ORDERED: NITR0.4T51 SL (15:05)
[2025-10-23] MEDS ORDERED: COR3.125T PO (15:27)
[2025-10-23 16:15] VITALS: O2SAT 98
== END 2025-10-23 17:00 | disposition home or self-care (01) | DRG 287 ==
LOC: ER 12:44 → ED HOLD 15:51 → SUR 3N 22:25
PROVIDERS: ADMIT Internal Medicine; ATTEND Internal Medicine
PROC: 4A023N8 Measurement of Cardiac Sampling and Pressure, Bilateral, Percutaneous Approach (ICD-10-PCS; principal; 2025-10-22)
PROC: B2111ZZ Fluoroscopy of Multiple Coronary Arteries using Low Osmolar Contrast (ICD-10-PCS; 2025-10-22)
PROC: B2151ZZ Fluoroscopy of Left Heart using Low Osmolar Contrast (ICD-10-PCS; 2025-10-22)
PROC: B41F1ZZ Fluoroscopy of Right Lower Extremity Arteries using Low Osmolar Contrast (ICD-10-PCS; 2025-10-22)
DX: I11.0 Hypertensive heart disease with heart failure (principal); I42.8 Other cardiomyopathies; I50.9 Heart failure, unspecified; Z20.822 Contact with and (suspected) exposure to COVID-19; K21.9 Gastro-esophageal reflux disease without esophagitis; Z79.899 Other long term (current) drug therapy
CPT/HCPCS: 36415; 71045; 80048; 80053; 82565; 82803; 83735; 83880; 84132; 84145; 84484; 85014; 85025; 87081; 87804; 87811; 93005; 93306; 93460; 99152; 99153; 99285; A6258; A6590; C1751; C1760; C1769; G0378; J1200; J1644; J1938; J2003; J2250; J3010; J7030; Q9967